=== PATIENT | female | born 1930 | race Caucasian/White ===

== ENCOUNTER → 2016-11-19 | Outpatient (CLI) | payer MEDICARE ==
[~2016-11-19] MED LIST: ACETAMINOPHEN500 M5 PO; ALLEGRA PO; ASPIRIN81 M1; B-121000 MC1 PO; CADUET 5 MG/201 TAB PO; FERROUS GLUCON324 M2 PO; FOLIC ACID1 MG PO; GINKGO BILOBA60 MG PO; LIPITOR20 MG PO; MOBIC PO; MOBIC15 MG PO; MONTELUKAST SOD10 MG PO; NORVASC PO; OMEPRAZOLE20 M1 PO; PREVACID PO; SINGULAIR PO; TOLTERODINE TART4 MG PO; TYLENOL #3 PO; VISION VITAMIN1 EACH PO; VOLTAREN50 MG PO; ZOLOFT PO; ZOLOFT50 MG PO
--- NOTE | ~2016-11-19 | MR17 ---
[facility] A Service of [facility] & [facility] RADIOLOGY TEXT RESULTS PATIENT: FARZANA NEWTON LOCATION: [facility] : 30 UNIT #: [id number] AGE: [address]: Diego Israel II, MD SEX: F ORDER DR: [id number] [facility] [address] [place], [place] [address] [id number] MR#: [id number] #: [id number] NAME: FARZANA NEWTON : 1930 SEX: F STUDY DATE/TIME: 11/19/2016 14:10 UNIT: [facility] ROOM: STUDY DESCRIPTION: MR Brain WWo Contrast Attending Physician: Diego Israel II., M.D. Referring Physician: Diego Israel II., M.D. Ordering Physician: Diego Israel II., M.D. Primary Care Physician: Francisco Diego M.D. MRI CENTER REPORT This report is preliminary unless electronic signature is present. EXAM MRI of the brain with and without contrast dated 11/19/2016. COMPARISON CT head without contrast dated 09/24/2012. HISTORY No acute stroke, space-occupying intracranial mass, mass effect, midline shift or hydrocephalus. Multiple nonenhancing hyperintense T2-signal lesions are noted in the brain involving the subcortical white matter, periventricular white matter. Basal ganglia, brainstem and cerebellar hemispheres are within normal limits. Postcontrast sequences do not demonstrate enhancing lesions. Status post bilateral cataract surgery. Mild paranasal sinus mucosal thickening is seen. Thick slices through the sella with the pituitary gland and pineal region are unremarkable. Degenerative changes are noted in the cervical spine particularly at C5-6. IMPRESSION 1. Scattered multiple hyperintense T2-signal lesions are noted in the brain involving the periventricular and subcortical white matter. They are probably related to prior insults like chronic microvascular ischemic change and old lacunar infarcts based on age and statistics. Relatively prominent 1 is noted in the anterior right parietal lobe extending towards the posterior right frontal lobe across a central sulcus. 2. No acute stroke, hydrocephalus, enhancing intracranial mass or midline shift. Dictated by... Rachel Rendon M.D. THIS IS AN ELECTRONICALLY VERIFIED REPORT Rachel Rendon M.D. at 11/23/2016 3:18 PM [facility] A Service of [facility] RADIOLOGY TEXT RESULTS PATIENT: FARZANA NEWTON LOCATION: [facility] : 30 UNIT #: [id number] AGE: [address]: Diego Israel II, MD SEX: F ORDER DR: EUGENIO/rocky TD: 11/22/2016 09:13 JOB #: [id number] MRI CENTER REPORT Page 1 of 1 COPY
[2016-11-19 14:15] LABS: POC - CREATININE 0.61 mg/dL (0.44-1.03); POC - GFR >60.0 mL/min (>60)
== END | disposition home or self-care (01) ==
LOC: CMRI 11-15 14:00
PROVIDERS: Psychiatry & Neurology Neurology
DX: R41.3 Other amnesia (principal); G93.9 Disorder of brain, unspecified; R90.82 White matter disease, unspecified
CPT/HCPCS: 70553; 82565; A9577

== ENCOUNTER → 2016-11-30 | Outpatient (CLI) | payer MEDICARE ==
--- NOTE | ~2016-11-30 | EKG ---
PATIENT: FARZANA NEWTON UNIT #: [id number] Ventricular Rate: 66 BPM Atrial Rate: 66 BPM P-R Interval: 146 ms QRS Duration: 74 ms Q-T Interval: 422 ms QTC Calculation(Bezet): 442 ms P Bird In Hand: 73 degrees Calculated R Bird In Hand: 46 degrees Calculated T Bird In Hand: 33 degrees Diagnosis Line: Normal sinus rhythm with sinus arrhythmia Diagnosis Line: Normal ECG Diagnosis Line: When compared with ECG of 19-JAN-2011 10:13, Diagnosis Line: No significant change was found Diagnosis Line: Confirmed by ИРИНА KIRKPATRICK MD ([id number]) on Diagnosis Line: 11/30/2016 10:49:57 PM INTERPRETING MD: EZ
[2016-11-30 15:48] LABS: HEMATOCRIT 26.3 % (35.0-45.0); HEMOGLOBIN 8.4 gm/dL (12.0-16.0); MEAN CELL VOLUME 75.2 FL (83-96); MEAN CORPUSCULAR HGB CONC 31.9 g/dL (30-36); MEAN PLATELET VOLUME 8.4 FL (6.5-11.5); RED BLOOD COUNT 3.49 X10e (3.90-5.30); RED CELL DISTRIBUTION WIDTH 14.4 % (11.0-15.5); WHITE BLOOD COUNT 5.8 X10e3 (4.0-10.5)
== END | disposition home or self-care (01) ==
LOC: CAMB 14:42
PROVIDERS: Surgery
DX: Z01.818 Encounter for other preprocedural examination (principal)
CPT/HCPCS: 36415; 85027; 93005